=== PATIENT | female | born 1975 | race Caucasian/White ===

== ENCOUNTER → 2017-02-02 | Outpatient (CLI) | payer OTHER ==
--- NOTE | 2017-02-03 07:34 | WWHP ---
DATE OF SERVICE: 02/02/17 CHIEF COMPLAINT: The patient is here for her routine gynecological exam and mammogram. HISTORY OF PRESENT ILLNESS: This is a 41-year-old G3, P2, 0-1-2 with an LMP of 01/20/17. She is on MonoNessa for control. She was changed from a triphasic pill to the monophasic pill last year because of breakthrough bleeding during the third week of her control pills. She states after the change, she had improvement for two or three months but again is starting her period during the third week of her pills making her menses prolonged. She states they are not very heavy. She is otherwise without complaints. PAST MEDICAL HISTORY: Seasonal allergies. Medications: 1. MonoNessa daily. 2. Singulair daily. 3. Flonase daily. 4. Multivitamin daily. ALLERGIES: No known drug allergies. PAST SURGICAL HISTORY AND PAST BULLDOGGER HISTORY: Unchanged from the 2015 H&P. SOCIAL HISTORY: She denies tobacco and drug use and has about two alcoholic drinks per week. 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 REVIEW OF SYSTEMS: She has gained about 4 pounds over the last year. She denies respiratory, cardiac or GI problems. PHYSICAL EXAM: Blood pressure 118/84. Height 5 feet 5 inches, weight 211 pounds. Temperature 98.2. Pulse 80. This is a well developed, heavyset white female who is alert and oriented times three in no acute distress. HEENT: is within normal limits. Neck is supple without mass or thyromegaly. Chest and lungs clear to auscultation. Heart is regular rate and rhythm. Breasts: Without mass or discharge. Axillary exam is negative for adenopathy. Back negative for CVA tenderness. Abdomen is soft and nontender without palpable masses. Pelvic exam, normal external genitalia. Cervix and vagina appears normal. There is no unusual discharge. The uterus is mid position, nongravid size and nontender. There are no palpable adnexal masses or tenderness. Rectal exam negative for mass or tenderness. Negative for occult blood. Extremities nontender. IMPRESSION: 1. A 41 year old female with normal gynecological exam. 2. Hypermenorrhea consisting of prolonged menses on oral contraception with menstrual bleeding starting during the third week of each pack of pills. PLAN: 1. Pap smear was performed. 2. Self breast examination was discussed. 3. We discussed different options for her hypermenorrhea. She would like to have a trial of a different control pill and she will be started on a Generess Fe and she will take one daily after the completion of her present pack of pills. If breakthrough bleeding persists, she was instructed to call in approximately three months. If she continues to have breakthrough bleeding, consider referral for further evaluation and possible endometrial ablation. I have stressed the importance of taking every pill as directed. 4. She will return in one year and prn. MTDD
== END ==
LOC: WWCWWP 10:36
PROVIDERS: ATTEND Obstetrics & Gynecology
DX: Z01.419 Encounter for gynecological examination (general) (routine) without abnormal findings (principal)

== ENCOUNTER → 2018-02-08 | Outpatient (CLI) | payer OTHER ==
[2018-02-08 12:51] VITALS: BP 121/82; PULSE 106; RESP 18; TEMP 98.3; BMI 36.1
--- NOTE | 2018-02-08 13:46 | P.HPOB ---
History of Present Illness H&P Date: 02/08/18 Chief Complaint: The patient is here for her routine gynecologic exam and mammogram. This is a 50-year-old 012 with an LMP of 01/26/2018. The patient previously had breakthrough bleeding on Ortho Tri-Cyclen and MonoNessa oral contraceptives. She states she has done better with Layolis FE (generic of Generess FE). She has had infrequent midcycle spotting with this pill. She is otherwise without complaints. Review of Systems The patient has gained 6 pounds over the last year. She denies respiratory, cardiac, or G.I. problems. 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 - Past Family History Father Family Medical History: Hyperlipidemia, Hypertension, Thyroid Disorder Additional Family Medical History / Comment(s): thyroid cancer Mother Family Medical History: Hyperlipidemia, Thyroid Disorder Additional Family Medical History / Comment(s): arthritis Medications and Allergies Home Medications and Allergies Comment(s): Layolis FE (generic of Generess FE) 1 PO q day. Home Medications Medication Instructions Recorded Confirmed Type Unable To Assess [Unable to Assess] 02/08/18 02/08/18 History Allergies Allergy/AdvReac Type Severity Reaction Status Date / Time No Known Allergies Allergy Verified 02/08/18 12:51 Exam Vital Signs Temp Pulse Resp BP 02/08/18 12:40 98.3 F 106 H 18 121/82 Intake and Output 02/07/18 02/08/18 02/08/18 22:59 06:59 14:59 Other: Weight 98.43 kg Height 5'5", BMI 36.1. This is a well-developed well-nourished heavyset white female who is alert and oriented times 3 in no acute distress. HEENT: Within normal limits. NECK: Supple without mass or thyromegaly. CHEST AND LUNGS: Clear to auscultation. HEART: Regular rate and rhythm. BREASTS: Are without mass or discharge. AXILLARY EXAM: Negative for adenopathy. BACK: Negative for CVA tenderness. ABDOMEN: Soft, nontender, without palpable masses. PELVIC EXAM: Normal external genitalia. Cervix and vagina appear normal. There is no unusual discharge. Upon palpation with bimanual examination, a mass was noted in the left vaginal fornix adjacent to the cervix. The mass is somewhat firm and measures approximately 1 x 1 cm. It feels round and is nontender. I reinserted the speculum and I was not able to visualize this mass. There is no evidence of prolapse. The uterus is midposition, nongravid size and nontender. There are no palpable adnexal masses or tenderness. RECTAL EXAM: negative for mass or tenderness and is negative for occult blood. EXTREMITIES: Nontender. IMPRESSION: 1. 42-year-old female doing better with Layolis FE and having infrequent breakthrough bleeding compared to other oral contraceptives. 2. Asymptomatic left vaginal fornix mass measuring approximately 1 x 1 cm. Differential diagnosis will include cervical, or low uterine segment fibroid, vaginal fibroma, atypical cervical polypoid mass, and the less likely, ovarian mass. PLAN: 1. Pap smear was deferred since she had a normal one last year. 2. Self breast awareness was discussed. 3. Baseline screening mammogram will be done today. 4. Transvaginal pelvic ultrasound will be done today. If there is uncertainty as to the nature of the vaginal mass, consider referral for surgical removal. 5. Continue current oral contraceptives. She will keep a menstrual calendar . The electronic prescription will be sent to [facility] on [facility]. 6. She will return in one year and PRN.
--- NOTE | 2018-02-08 14:39 | MM ---
Reason for exam: screening (asymptomatic). History: Taking hormonal contraceptives for 29 years beginning at age 13. Physical Findings: Dr Ontiveros did the breast exam and found no abnormalities. MG 3D Screening Mammo W/Cad Bilateral CC and MLO view(s) were taken. No prior studies available for comparison. The breast tissue is heterogeneously dense. This may lower the sensitivity of mammography. No suspicious calcifications. No discrete abnormality. These results were verbally communicated with the patient and result sheet given to the patient on 02/08/18. ASSESSMENT: Benign, BI-RAD 2 RECOMMENDATION: Routine screening mammogram of both breasts in 1 year.
--- NOTE | 2018-02-08 14:44 | US ---
EXAMINATION TYPE: US transvaginal DATE OF EXAM: 02/08/2018 COMPARISON: NONE CLINICAL HISTORY: D39.[address] felt area within vaginal canal on physical exam. Patient sta evan no symptoms. Difficult exam due to overlying bowel gas TECHNIQUE: . Transvaginal sonographic images of the pelvis were acquired. Date of LMP: 01/26/2018 EXAM MEASUREMENTS: Uterus: 7.1 x 3.0 x 4.4 cm Endometrial Stripe: 0.3 cm Right Ovary: 2.3 x 1.5 x 1.9 cm Left Ovary: 2.2 x 1.2 x 1.6 cm 1. Uterus: Anteverted Hypoechoic area visualized within the cervix measuring 2.0 x 2.0 x 2.1 cm. T his area does show arterial flow 2. Endometrium: wnl 3. Right Ovary: Follicle visualized, wnl 4. Left Ovary: wnl as visualized 5. Bilateral Adnexa: wnl 6. Posterior cul-de-sac: wnl IMPRESSION: 1. Hypoechoic lesion of the cervix of uncertain etiology could reflect a complex cervical nabothian c ysts. Correlate clinically.
--- NOTE | 2018-02-09 13:43 | P.PN ---
Progress Note - Text Progress Note Date: 02/09/18 OUTPATIENT FOLLOW-UP NOTE TEST(S)/RESULTS: pelvic ultrasound done on 02/08/2018 showed a hypoechoic lesion of the cervix measuring 2.1cm of uncertain etiology. METHOD OF NOTIFICATION: the patient was notified by phone. PATIENT COMMENTS: DIAGNOSIS: vaginal or cervical mass approximate 2.1 cm of uncertain etiology. DISCUSSION: based on my examination, I do not feel this is likely a Nabothian cyst and I am uncertain if this is cervical in nature. PLAN: I have discussed options with the patient. Even though I believe this is most likely a benign mass, it is atypical in its location and an abnormal finding. I have recommended referring her for surgical removal. We also discussed the option of repeating an ultrasound in 6 months to see if there is any change. After long discussion we have decided to proceed with referral for surgical removal. She will be referred to Dr. Winters, who she has seen before.
== END ==
LOC: WWCWWP 12:32
PROVIDERS: ATTEND Obstetrics & Gynecology
DX: Z12.31 Encounter for screening mammogram for malignant neoplasm of breast (principal); N88.8 Other specified noninflammatory disorders of cervix uteri
CPT/HCPCS: 76830; 77063; 77067

== ENCOUNTER → 2019-03-27 | Outpatient (CLI) | payer OTHER ==
--- NOTE | 2019-03-28 09:13 | MM ---
Reason for exam: screening (asymptomatic). Last mammogram was performed 1 year and 2 months ago. History: Patient had first child at age 37. Taking hormonal contraceptives for 31 years beginning at age 13. Physical Findings: A clinical breast exam by your physician is recommended on an annual basis and results should be correlated with mammographic findings. MG 3D Screening Mammo W/Cad Bilateral CC and MLO view(s) were taken. Prior study comparison: February 08, 2018, bilateral MG 3d screening mammo w/cad. The breast tissue is heterogeneously dense. This may lower the sensitivity of mammography. There is no discrete abnormality. No significant changes when compared with prior studies. ASSESSMENT: Negative, BI-RAD 1 RECOMMENDATION: Routine screening mammogram of both breasts in 1 year.
== END ==
LOC: RADMAMWWP 09:50
PROVIDERS: ATTEND Obstetrics & Gynecology
DX: Z12.31 Encounter for screening mammogram for malignant neoplasm of breast (principal)
CPT/HCPCS: 77063; 77067

== ENCOUNTER → 2020-07-15 | Outpatient (CLI) | payer OTHER ==
--- NOTE | 2020-07-16 14:35 | MM ---
Reason for exam: screening (asymptomatic). Last mammogram was performed 1 year and 4 months ago. History: Patient had first child at age 37. Family history of breast cancer in maternal aunt. Taking hormonal contraceptives for 31 years beginning at age 13. Physical Findings: A clinical breast exam by your physician is recommended on an annual basis and results should be correlated with mammographic findings. MG 3D Screening Mammo W/Cad Bilateral CC and MLO view(s) were taken. Prior study comparison: March 27, 2019, bilateral MG 3d screening mammo w/cad. February 08, 2018, bilateral MG 3d screening mammo w/cad. The breast tissue is heterogeneously dense. This may lower the sensitivity of mammography. There is chronic nodularity in the right breast. No significant changes when compared with prior studies. ASSESSMENT: Benign, BI-RAD 2 RECOMMENDATION: Routine screening mammogram of both breasts in 1 year.
== END | disposition home or self-care (01) ==
LOC: RADMAMWWP 09:14
PROVIDERS: ATTEND Obstetrics & Gynecology
DX: Z12.31 Encounter for screening mammogram for malignant neoplasm of breast (principal)
CPT/HCPCS: 77063; 77067

== ENCOUNTER → 2021-09-04 | Outpatient (CLI) | payer OTHER ==
--- NOTE | 2021-09-05 11:50 | MM ---
Reason for exam: screening (asymptomatic). Last mammogram was performed 1 year and 2 months ago. History: Patient had first child at age 37. Family history of breast cancer in maternal aunt. Taking hormonal contraceptives for 31 years beginning at age 13. Physical Findings: A clinical breast exam by your physician is recommended on an annual basis and results should be correlated with mammographic findings. MG 3D Screening Mammo W/Cad Bilateral CC and MLO view(s) were taken. Prior study comparison: July 15, 2020, bilateral MG 3d screening mammo w/cad. March 27, 2019, bilateral MG 3d screening mammo w/cad. The breast tissue is heterogeneously dense. This may lower the sensitivity of mammography. There is chronic nodularity in the right breast. No significant changes when compared with prior studies. ASSESSMENT: Benign, BI-RAD 2 RECOMMENDATION: Routine screening mammogram of both breasts in 1 year.
== END | disposition home or self-care (01) ==
LOC: RADMAMWWP 11:10
PROVIDERS: ATTEND Obstetrics & Gynecology
DX: Z12.31 Encounter for screening mammogram for malignant neoplasm of breast (principal); Z80.3 Family history of malignant neoplasm of breast
CPT/HCPCS: 77063; 77067

== ENCOUNTER → 2022-01-12 | Outpatient (CLI) | payer OTHER ==
--- NOTE | 2022-01-12 16:24 | US ---
EXAMINATION TYPE: US venous doppler duplex LE RT DATE OF EXAM: 01/12/2022 3:51 PM COMPARISON: NONE CLINICAL HISTORY: M79.604 PAIN IN RIGHT LEG. Pain SIDE PERFORMED: Right TECHNIQUE: The lower extremity deep venous system is examined utilizing real time linear array sonog stephane with graded compression, doppler sonography and color-flow sonography. VESSELS IMAGED: Common Femoral Vein Deep Femoral Vein Greater Saphenous Vein * Femoral Vein Popliteal Vein Small Saphenous Vein * Proximal Calf Veins (* superficial vessels) Right Leg: Positive for DVT in Proximal Calf Veins. IMPRESSION: Deep vein thrombosis within the posterior tibial veins high portion.
== END | disposition home or self-care (01) ==
LOC: RADUSWWP 15:25
PROVIDERS: ATTEND Internal Medicine Geriatric Medicine
DX: I82.441 Acute embolism and thrombosis of right tibial vein (principal)

== ENCOUNTER → 2022-03-26 | Outpatient (CLI) | payer OTHER ==
[2022-03-26 18:20] LABS: Basophils # (A) 0.03 X 10*3/uL (0.00-0.10); Basophils % (A) 0.4 %; Eosinophils # (A) 0.16 X 10*3/uL (0.04-0.35); Eosinophils % (A) 2.1 %; HCT 40.4 % (37.2-46.3); HGB 13.3 g/dL (12.0-15.0); Immature Grans, Automated 0.3 %; Lymphocytes # (A) 1.87 X 10*3/uL (0.90-5.00); Lymphocytes % (A) 24.1 %; MCH 29.8 pg (27.0-32.0); MCHC 32.9 g/dL (32.0-37.0); MCV 90.4 fL (80.0-97.0); Mean Platelet Volume 9.7 fL (9.5-12.2); Monocytes # (A) 0.58 X 10*3/uL (0.20-1.00); Monocytes % (A) 7.5 %; NRBC Per 100 WBC 0 /100 WBCS (0.0-0.0); Neutrophils # (A) 5.11 X 10*3/uL (1.80-7.70); Neutrophils % (A) 65.6 %; Platelet Count 374 X 10*3/uL (140-440); RBC 4.47 X 10*6/uL (4.10-5.20); RDW 12.3 % (11.5-14.5); WBC 7.77 X 10*3/uL (4.50-10.00)
[2022-03-26 18:33] LABS: African American GFR (CKD) 103.2 (60.0-200.0); Albumin 4.6 g/dL (3.8-4.9); Albumin/Globulin Ratio 1.35 (1.60-3.17); Anion Gap 10.1 mmol/L (10.00-18.00); BUN/Creat Ratio 10.75 Ratio (12.00-20.00); Blood Urea Nitrogen 8.6 mg/dL (9.0-27.0); Calcium 9.5 mg/dL (8.7-10.3); Carbon Dioxide 23.9 mmol/L (20.0-27.5); Globulin 3.4 g/dL (1.6-3.3); Potassium 3.8 mmol/L (3.5-5.5); Total Bilirubin 0.2 mg/dL (0.30-1.20)
[2022-03-27 09:37] LABS: Protein C (Activity) 122 % (71-138)
[2022-03-27 09:41] LABS: Anti-Thrombin III Activity 119 % (79-109)
[2022-03-27 10:17] LABS: Prothrombin 20210A Mutation Negative
[2022-03-27 11:52] LABS: Protein S Antigen 98 % (50 - 140)
== END | disposition home or self-care (01) ==
LOC: LABWHC1 10:56
PROVIDERS: ATTEND Internal Medicine Geriatric Medicine
DX: I82.402 Acute embolism and thrombosis of unspecified deep veins of left lower extremity (principal); D68.9 Coagulation defect, unspecified
CPT/HCPCS: 36415; 80053; 81240; 81241; 85025; 85300; 85303; 85305; 85379; 85385

== ENCOUNTER → 2022-06-05 | Outpatient (CLI) | payer OTHER ==
--- NOTE | 2022-06-05 15:32 | US ---
EXAMINATION TYPE: US venous doppler duplex LE LT DATE OF EXAM: 06/05/2022 3:26 PM COMPARISON: Prev right leg ultrasound. CLINICAL HISTORY: I82.402 DVT of left leg. Pt states pain in left leg, currently on blood thinners fo r DVT of right leg SIDE PERFORMED: Left TECHNIQUE: The lower extremity deep venous system is examined utilizing real time linear array sonog stephane with graded compression, doppler sonography and color-flow sonography. VESSELS IMAGED: Common Femoral Vein Deep Femoral Vein Greater Saphenous Vein * Femoral Vein Popliteal Vein Small Saphenous Vein * Proximal Calf Veins (* superficial vessels) Left Leg: Negative for DVT Results called to Dr. Cristina at time of exam Grayscale, color doppler, spectral doppler imaging performed of the deep veins of the left lower extr emity. There is normal flow, compressibility, vascular waveforms. IMPRESSION: No ultrasound evidence for acute DVT in the left lower extremity.
== END | disposition home or self-care (01) ==
LOC: RADUSWWP 14:36
PROVIDERS: ATTEND Family Medicine
DX: I82.402 Acute embolism and thrombosis of unspecified deep veins of left lower extremity (principal)

== ENCOUNTER → 2022-07-02 | Outpatient (CLI) | payer OTHER ==
[2022-07-02 14:16] LABS: Basophils # (A) 0.04 X 10*3/uL (0.00-0.10); Basophils % (A) 0.5 %; Eosinophils # (A) 0.15 X 10*3/uL (0.04-0.35); HCT 40.8 % (37.2-46.3); HGB 13.1 g/dL (12.0-15.0); Immature Grans, Automated 0.3 %; Lymphocytes # (A) 2.16 X 10*3/uL (0.90-5.00); Lymphocytes % (A) 28.3 %; MCH 28.6 pg (27.0-32.0); MCHC 32.1 g/dL (32.0-37.0); MCV 89.1 fL (80.0-97.0); Mean Platelet Volume 9.9 fL (9.5-12.2); Monocytes # (A) 0.59 X 10*3/uL (0.20-1.00); Monocytes % (A) 7.7 %; NRBC Per 100 WBC 0 /100 WBCS (0.0-0.0); Neutrophils # (A) 4.66 X 10*3/uL (1.80-7.70); Neutrophils % (A) 61.2 %; Platelet Count 316 X 10*3/uL (140-440); RBC 4.58 X 10*6/uL (4.10-5.20); RDW 12.5 % (11.5-14.5); WBC 7.62 X 10*3/uL (4.50-10.00)
[2022-07-02 14:59] LABS: ALT 54 U/L (8-44); AST 37 U/L (13-35); African American GFR (CKD) 89.5 (60.0-200.0); Albumin 4.5 g/dL (3.8-4.9); Albumin/Globulin Ratio 1.36 (1.60-3.17); Alkaline Phosphatase 59 U/L (41-126); BUN/Creat Ratio 11.11 Ratio (12.00-20.00); Calcium 9.4 mg/dL (8.7-10.3); Carbon Dioxide 22.6 mmol/L (20.0-27.5); Chloride 101 mmol/L (96-109); Chol/HDL Ratio 3.11 Ratio; Globulin 3.3 g/dL (1.6-3.3); Glucose 85 mg/dL (70-110); LDL Cholesterol,Calculated 86.8 mg/dL (0.0-131.0); Non-African American GFR(CKD) 77.2 (60.0-200.0); Potassium 4.1 mmol/L (3.5-5.5); Sodium 136 mmol/L (135-145); Total Protein 7.8 g/dL (6.2-8.2); VLDL Calculation 16.34 mg/dL (5.00-40.00)
== END | disposition home or self-care (01) ==
LOC: LABWHC1 08:05
PROVIDERS: ATTEND Internal Medicine Geriatric Medicine
DX: E78.5 Hyperlipidemia, unspecified (principal); E03.9 Hypothyroidism, unspecified; R79.9 Abnormal finding of blood chemistry, unspecified
CPT/HCPCS: 36415; 80053; 80061; 84443; 85025

== ENCOUNTER → 2023-09-30 | Outpatient (CLI) | payer OTHER ==
--- NOTE | 2023-09-30 13:04 | MM ---
Reason for Exam: Screening (asymptomatic). Last mammogram was performed 1 year(s) and 1 month(s) ago. Patient History: Menarche at age 13. First Full-Term at age 34. Late child-bearing (after 30). Premenopausal. Hormonal Contraceptives, starting at age 13 for 31 years. Maternal aunt had breast cancer, age 70. Maternal cousin had breast cancer, age 55. Risk Values: Maira 5 year model risk: 1.3%. NCI Lifetime model risk: 14.0%. Prior Study Comparison: 07/15/2020 Bilateral Screening Mammogram, [facility]. 09/04/2021 Bilateral Screening Mammogram, [facility]. 09/07/2022 Bilateral MG 3D screening mammo w/cad, [facility]. Tissue Density: The breasts are heterogeneously dense, which may obscure small masses. Findings: Analyzed By CAD. There is no suspicious group of microcalcifications or new suspicious mass in either breast. Overall Assessment: Benign, BI-RAD 2 Management: Screening Mammogram of both breasts in 1 year. . Patient should continue monthly self-breast exams. A clinical breast exam by your physician is recommended on an annual basis. This exam should not preclude additional follow-up of suspicious palpable abnormalities. Note on Maira scores and lifetime risk: 1. A Maira score greater than 3% is considered moderate risk. If this is the case, consider specialist referral to assess eligibility for a risk reducing agent. 2. If overall lifetime risk for the development of breast cancer is 20% or higher, the patient may qualify for future screening with alternating mammogram and breast MRI. Electronically signed and approved by: Sherwin Suazo M.D. Radiologis
== END | disposition home or self-care (01) ==
LOC: RADMAMWWP 11:27
PROVIDERS: ATTEND Obstetrics & Gynecology
DX: Z12.31 Encounter for screening mammogram for malignant neoplasm of breast (principal); Z80.3 Family history of malignant neoplasm of breast
CPT/HCPCS: 77063; 77067

== ENCOUNTER → 2023-12-29 | Outpatient (CLI) | payer OTHER ==
[2023-12-29 10:55] LABS: Basophils # (A) 0.1 k/uL (0-0.2); Basophils % (A) 1 %; Eosinophils # (A) 0.2 k/uL (0-0.7); Eosinophils % (A) 3 %; HCT 44.3 % (34.0-46.0); HGB 13.7 gm/dL (11.4-16.0); Lymphocytes % (A) 26 %; MCH 28.6 pg (25.0-35.0); MCV 92.4 fL (80.0-100.0); Mean Platelet Volume 7.7; Monocytes # (A) 0.5 k/uL (0-1.0); Monocytes % (A) 6 %; Neutrophils # (A) 4.7 k/uL (1.3-7.7); Neutrophils % (A) 62 %; Platelet Count 328 k/uL (150-450); RDW 13.2 % (11.5-15.5); WBC 7.6 k/uL (3.8-10.6)
[2023-12-29 15:48] LABS: ALT 31 U/L (8-44); AST 25 U/L (13-35); Albumin 4.5 g/dL (3.8-4.9); Alkaline Phosphatase 62 U/L (41-126); BUN/Creat Ratio 15.22 Ratio (12.00-20.00); Blood Urea Nitrogen 13.7 mg/dL (9.0-27.0); Calcium 9.3 mg/dL (8.7-10.3); Carbon Dioxide 20.6 mmol/L (21.6-31.8); Chloride 102 mmol/L (96-109); Glucose 95 mg/dL (70-110); LDL Cholesterol,Calculated 109.3 mg/dL (0.0-131.0); Potassium 3.9 mmol/L (3.5-5.5); Sodium 137 mmol/L (135-145); T4, Free (Free Thyroxine) 1.28 ng/dL (0.80-1.80); Total Bilirubin 0.5 mg/dL (0.3-1.2); Total Protein 7.5 g/dL (6.2-8.2)
== END | disposition home or self-care (01) ==
LOC: LABWHC1 10:02
PROVIDERS: ATTEND Internal Medicine Geriatric Medicine
DX: E78.5 Hyperlipidemia, unspecified (principal); E03.9 Hypothyroidism, unspecified; D68.9 Coagulation defect, unspecified; R73.9 Hyperglycemia, unspecified
CPT/HCPCS: 36415; 80053; 80061; 83036; 84439; 84443; 85025

== ENCOUNTER → 2025-01-03 | Outpatient (CLI) | payer OTHER ==
--- NOTE | 2025-01-03 14:41 | MM ---
Reason for Exam: Screening (asymptomatic). Last mammogram was performed 1 year(s) and 3 month(s) ago. Patient History: Menarche at age 13. First Full-Term at age 34. Late child-bearing (after 30). Premenopausal. Hormonal Contraceptives, starting at age 13 for 31 years. Maternal aunt had breast cancer, age 70. Maternal cousin had breast cancer, age 55. Last menstrual period: 12/20/2024 Risk Values: Maira 5 year model risk: 1.3%. NCI Lifetime model risk: 13.8%. Prior Study Comparison: 09/04/2021 Bilateral Screening Mammogram, [facility]. 09/07/2022 Bilateral MG 3D screening mammo w/cad, [facility]. 09/30/2023 Bilateral MG 3D screening mammo w/cad, [facility]. Tissue Density: There are scattered areas of fibroglandular density. Findings: Analyzed By CAD. Stable circumscribed 8 mm lesion in the right breast upper-outer quadrant. There is no suspicious group of microcalcifications or new suspicious mass in either breast. Overall Assessment: Negative, BI-RAD 1 Management: Screening Mammogram of both breasts in 1 year. . Patient should continue monthly self-breast exams. A clinical breast exam by your physician is recommended on an annual basis. This exam should not preclude additional follow-up of suspicious palpable abnormalities. Note on Maira scores and lifetime risk: 1. A Maira score greater than 3% is considered moderate risk. If this is the case, consider specialist referral to assess eligibility for a risk reducing agent. 2. If overall lifetime risk for the development of breast cancer is 20% or higher, the patient may qualify for future screening with alternating mammogram and breast MRI. [facility], , 01/03/2025 2:38 PM. Electronically signed and approved by: Lucas Hope M.D.
== END | disposition home or self-care (01) ==
LOC: RADMAMWWP 14:00
PROVIDERS: ATTEND Obstetrics & Gynecology
DX: Z12.31 Encounter for screening mammogram for malignant neoplasm of breast (principal); R92.323 Mammographic fibroglandular density, bilateral breasts; Z92.0 Personal history of contraception; Z80.3 Family history of malignant neoplasm of breast
CPT/HCPCS: 77063; 77067

== ENCOUNTER → 2025-01-25 | Outpatient (CLI) | payer OTHER ==
[2025-01-25 15:11] LABS: Basophils # (A) 0.05 X 10*3/uL (0.00-0.10); Basophils % (A) 0.6 %; Eosinophils # (A) 0.22 X 10*3/uL (0.04-0.35); Eosinophils % (A) 2.5 %; HCT 37.4 % (37.2-46.3); HGB 11.5 g/dL (12.0-15.0); Immature Grans, Automated 0.20 %; Lymphocytes # (A) 2.39 X 10*3/uL (0.90-5.00); Lymphocytes % (A) 27.7 %; MCH 26.1 pg (27.0-32.0); MCHC 30.7 g/dL (32.0-37.0); MCV 84.8 FL (80.0-97.0); Monocytes # (A) 0.76 X 10*3/uL (0.20-1.00); Monocytes % (A) 8.8 %; NRBC Per 100 WBC 0 X 10*3/uL (0.00-0.01); Neutrophils # (A) 5.19 X 10*3/uL (1.80-7.70); Neutrophils % (A) 60.2 %; Platelet Count 383 X 10*3/uL (140-440); RBC 4.41 X 10*6/uL (4.10-5.20); RDW 13.5 % (11.5-14.5); WBC 8.63 X 10*3/uL (4.50-10.00)
[2025-01-25 15:49] LABS: ALT 39 U/L (8-44); AST 33 U/L (13-35); Albumin 4.4 g/dL (3.8-4.9); Albumin/Globulin Ratio 1.33 Ratio (1.60-3.17); Alkaline Phosphatase 62 U/L (41-126); Anion Gap 12.80 mmol/L (4.00-12.00); BUN/Creat Ratio 13.25 Ratio (12.00-20.00); Blood Urea Nitrogen 10.6 mg/dL (9.0-27.0); Calcium 9.2 mg/dL (8.7-10.3); Carbon Dioxide 22.2 mmol/L (21.6-31.8); Chloride 101 mmol/L (96-109); Cholesterol 165.00 mg/dL (0.00-200.00); Globulin 3.3 g/dL (1.6-3.3); Glucose 86 mg/dL (70-110); HDL Cholesterol 59.70 mg/dL (40.00-60.00); LDL Cholesterol,Calculated 87.8 mg/dL (0.0-131.0); Magnesium 1.9 mg/dL (1.5-2.4); Potassium 4.1 mmol/L (3.5-5.5); Sodium 136 mmol/L (135-145); T4, Free (Free Thyroxine) 1.17 ng/dL (0.80-1.80); Total Protein 7.7 g/dL (6.2-8.2); Triglycerides 87.30 mg/dL (0.00-149.00); VLDL Calculation 17.46 mg/dL (5.00-40.00)
== END | disposition home or self-care (01) ==
LOC: LABWHC1 01-19 08:43
PROVIDERS: ATTEND Internal Medicine Geriatric Medicine
DX: E78.5 Hyperlipidemia, unspecified (principal); E03.9 Hypothyroidism, unspecified; K21.9 Gastro-esophageal reflux disease without esophagitis; D68.9 Coagulation defect, unspecified; G47.30 Sleep apnea, unspecified; R73.9 Hyperglycemia, unspecified
CPT/HCPCS: 36415; 80053; 80061; 82306; 83036; 83735; 84439; 84443; 85025